=== PATIENT | female | born 1950 | race Caucasian/White ===

== ENCOUNTER → 2017-09-01 07:28 | Outpatient (CLI) | payer MEDICARE, OTHER ==
[2013-01-11 09:04] VITALS: BMI 29.2
== END | disposition home or self-care (01) ==
LOC: D.RAD 07:28
DX: K21.9 Gastro-esophageal reflux disease without esophagitis (principal)

== ENCOUNTER → 2018-12-31 10:34 | Outpatient (CLI) | payer MEDICARE, OTHER ==
[2013-01-11 09:04] VITALS: BMI 29.2
--- NOTE | 2019-01-02 10:39 | ST ---
PATIENT:MARYAM VALDOVINOS MEDICAL RECORD: [id number] SEX: F LOCATION:[facility] ORDER #: ADMISSION DATE: 12/31/18 AGE OF PATIENT: 68 REFERRING PHYSICIAN: INTERPRETING PHYSICIAN: FLAKITA MARK MD DATE OF SERVICE: 12/31/2018 Nuclear Stress Test INDICATION: Shortness of breath, hyperlipidemia. She was exercised on standard Randy protocol for 6 minutes, terminated due to achievement of max target heart rate response with 28 mCi of sestamibi injected at peak stress, 9 mCi was used previously for rest images. FINDINGS: Gated SPECT reveals preserved ejection fraction at 77% with good wall motion and thickening and brightening throughout all segments. SPECT imaging Cardiolite was used as myocardial fusion agent. There is homogeneous uptake throughout all segments at rest and stress with no evidence of inducible ischemia or previous infarction. OVERALL IMPRESSION: 1. This is a normal nuclear stress test with no evidence of inducible ischemia or previous infarction. 2. Gated SPECT reveals a preserved ejection fraction at 77%. In this patient with ongoing symptomatology, the current scan does not suggest the presence of hemodynamically significant coronary artery disease. Evaluate noncardiac etiology of chest pain. TRANSINT:[id number] Voice Confirmation ID: [id number] DOCUMENT ID: [id number] FLAKITA MARK MD at 1039 CC: [id number] DICTATION DATE: 12/31/18 1603 PAYROLL ACCOUNTING MANAGER: 01/01/19 0600 DEP CLI 12/31/18 [id number] [place] [address]
== END | disposition home or self-care (01) ==
LOC: D.HCCARDIO 10:34
PROVIDERS: ATTEND Internal Medicine Interventional Cardiology
DX: R06.09 Other forms of dyspnea (principal)

== ENCOUNTER → 2019-02-05 12:39 | Outpatient (CLI) | payer MEDICARE, OTHER ==
[2013-01-11 09:04] VITALS: BMI 29.2
== END | disposition home or self-care (01) ==
LOC: D.US 12:39
PROVIDERS: ATTEND Internal Medicine Interventional Cardiology
DX: I70.213 Atherosclerosis of native arteries of extremities with intermittent claudication, bilateral legs (principal)

== ENCOUNTER 2019-09-09 08:12 | Day surgery (SDC) | payer MEDICARE, OTHER ==
[~2019-09-09] VITALS: Ht 160 cm; Wt 70.3 kg
--- NOTE | ~2019-09-09 | HP ---
PATIENT: MARYAM MORILLO MEDICAL RECORD: [id number] ACCOUNT: [id number] LOCATION:[facility] : 50 ADMISSION DATE: 09/09/19 PCP: LIDIA BUCIO MD HISTORY AND PHYSICAL EXAMINATION HISTORY OF PRESENT ILLNESS: Ms. Morillo is a 69-year-old female with a large left neck mass below the left ear. Her needle biopsy showed some possible salivary gland tissue and fibroadipose tissue. She is being admitted for excision of a neck mass. PAST MEDICAL HISTORY: Includes hypertension, reflux, history of melanoma. PAST SURGICAL HISTORY: Includes tonsillectomy, breast biopsy, C-sections, cholecystectomy, appendectomy, hemorrhoidectomy, hysterectomy, removal of melanoma and surgery on the right foot for fracture. CURRENT MEDICATIONS: Hydrochlorothiazide, atorvastatin, Combigan, trazodone, Meloxicam. ALLERGIES: CODEINE. PHYSICAL EXAMINATION: GENERAL: Healthy-appearing. FACE: Normal, symmetric, no lesions. EYES: Sclerae and conjunctivae are normal. NECK: She had a mass on the left side of the neck, adjacent to the anterior border of the SCM, moves laterally, but not particularly vertically, partially attached to the SCM or carotid sheath. No other masses or adenopathy. CHEST: Clear. CARDIOVASCULAR: Regular rate and rhythm, no murmur. EXTREMITIES: Normal. IMPRESSION: Left neck mass. PLAN: Excision of the left neck mass. TRANSINT:[id number] Voice Confirmation ID: [id number] DOCUMENT ID: [id number] JS GALAN MD CC: [id number] DICTATION DATE: 09/06/19 1401 DEVULCANIZER HEAD: 09/06/19 [id number] [place] [address]
--- NOTE | ~2019-09-09 | OP ---
PATIENT NAME: MARYAM VALDOVINOS MEDICAL RECORD: [id number] :50 LOCATION:[facility] ADMISSION DATE: SURGEON: HERNAN DING MD DATE OF OPERATION: 09/09/2019 PREOPERATIVE DIAGNOSIS: Left neck mass. POSTOPERATIVE DIAGNOSIS: Left neck mass. PROCEDURE: Excision of left cervical node. SURGEON: Hernan Ding MD ANESTHESIA: General orotracheal. BLOOD LOSS: Less than 1 cc. SPECIMENS: Left cervical node. DRAINS: None. COMPLICATIONS: None. DISPOSITION: Recovery stable. PROCEDURE NOTE: She was brought to the operating room and placed in supine position, sedated and intubated by anesthesia. Head was turned slightly to the right. Left neck was prepped and draped in usual sterile fashion and a skin crease directly over the mass was injected with less than 1 mL of 1% lidocaine with 1:100,000 epinephrine along 27-gauge needle. An incision was made with a 15 blade. This was taken down through the platysma. The node is basically directly under the SCM, so I dissected out the anterior border of the sternocleidomastoid just bluntly dissected with a tonsil clamp very easily dissect down on to the lymph node without any sharp dissection or cautery at all. There was really no bleeding with retraction and 2 tonsil clamps, I was able to just dissect out the lymph node out. It came out completely intact about 1.5 cm. This was sent fresh to pathology for frozen. They felt like this was compatible with a possible lymphoma. Some of that was processed for flow cytometry. The wound was completely clean and dry, the platysmal layer was closed with interrupted 5-0 Vicryl and skin was closed with running 6-0 Prolene. Steri-Strips and Mastisol were applied. She was awakened, extubated, and transported to recovery in good condition. No complications. TRANSINT:[id number] Voice Confirmation ID: [id number] DOCUMENT ID: [id number] HERNAN DING MD CC: [id number] DICTATION DATE: 09/09/19 1331 VICE PRESIDENT OF RECRUITING: 09/09/19 1737 [facility] 09/09/19 [id number] [place] [address]
[2019-09-09 08:41] LABS: HEMATOCRIT 40.3 % (36.0-48.0); HEMOGLOBIN 13.6 g/dL (12-16); MCH 31.6 pg (26.0-34.0); MCHC 33.7 g/dL (31.0-37.0); MCV 93.7 fL (80.0-100.0); MEAN PLATELET VOLUME 9.7 fL (7.4-10.4); RBC 4.3 10x6/uL (4.00-5.40); RDW 12.7 % (11.5-14.5); WBC 6.5 10x3/uL (4.8-10.8)
[2019-09-09 08:49] LABS: CALC OSMOLALITY 289 mosm/kg (275-300); CALCIUM 9.2 mg/dL (8.5-10.1); CARBON DIOXIDE 29.9 mmol/L (21.0-32.0); CHLORIDE - SERUM 107 mmol/L (98-107); CREATININE - SERUM 0.8 mg/dL (0.6-1.3); GLUCOSE 109 mg/dL (74-106); POTASSIUM - SERUM 3.9 mmol/L (3.5-5.1); SODIUM 144 mmol/L (136-145); UREA NITROGEN 17 mg/dL (7-18); eGFR NON AFRICAN AMERICAN 75 mL/min (90-120)
[2019-09-09] MEDS ORDERED: HCTZ25 MG PO (10:08)
[2019-09-09] MEDS ORDERED: ROPINIROLE HCL1 MG PO (10:08)
[2019-09-09] MEDS ORDERED: DORZOL (10:09)
[2019-09-09] MEDS ORDERED: TRAZODONE HCL150 MG PO (10:09)
[2019-09-09] MEDS ORDERED: TIMOL (10:09)
[2019-09-09] MEDS ORDERED: LIPITOR20 MG PO (10:10)
[2019-09-09 10:19] VITALS: BP 126/73; Ht 160 cm; Wt 70.3 kg
--- NOTE | 2019-09-09 11:21 | NUR ---
DR. HIGUERA NOTIFIED AND REVIEWED PT'S BEHAVIOR AND ASSESSMENT RESULTS. PT IS A LOW RISK PER DR. HIGUERA. DR. HIGUERA STATED TO GIVE RESOURCES TO PT AT TIME OF DISCHARGE. NO FURTHER ORDERS AT THIS TIME. RESOURCES REVIEWED WITH PT AND SHE VERBALIZED UNDERSTANDING.
== END 2019-09-09 15:05 | disposition home or self-care (01) ==
LOC: D.OPS 08:12 → D.PAN 09:45 → D.OPS 10:15 → D.PAN 10:15 → D.OPS 11:45 → D.PAN 11:45 → D.OPS 15:05
PROVIDERS: Anesthesiology; ATTEND Otolaryngology
DX: R22.1 Localized swelling, mass and lump, neck (principal); I10 Essential (primary) hypertension; K21.9 Gastro-esophageal reflux disease without esophagitis; Z85.820 Personal history of malignant melanoma of skin